=== PATIENT | female | born 2000 | race African-American/Black ===

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

== ENCOUNTER 2022-09-25 16:25 | Emergency (ER) | payer OTHER, SELFPAY ==
[2022-09-25] VITALS (8 sets, daily range): BP systolic 118–154; BP diastolic 65–90; PULSE 91–120; RESP 15–25; TEMP 36.3; O2SAT 98–100
--- NOTE | ~2022-09-25 | XR_ITS ---
XR chest 2V DATE: 09/25/2022 16:57 INDICATION: Chest pain, shortness of breath TECHNIQUE: PA and lateral views COMPARISON: January 04, 2008 pediatric 2 view chest FINDINGS: Normal heart size. No hilar or mediastinal enlargement. No pulmonary infiltrate or consolidation, pleural effusion or pulmonary vascular congestion or pneumo thorax. IMPRESSION: Negative Reviewed, dictated and finalized at location A. IMPRESSION: Negative
--- NOTE | 2022-09-25 16:30 | ECG_ITS ---
Measurements Intervals [place] Rate: 114 P: 50 MN: 169 QRS: 61 QRSD: 73 T: 29 QT: 315 QTc: 434 Interpretive Statements SINUS TACHYCARDIA POSSIBLE LEFT ATRIAL ENLARGEMENT ABNORMAL ECG COMPARED TO ECG 08/28/2021 13:15:57 SINUS TACHYCARDIA NOW PRESENT Electronically Signed On 09-25-2022 20:20:59 CDT by Vasyl Soriano D.O.
[2022-09-25 16:47] LABS: Basophils Percent Auto 0.9 % (0.2-1.2); Eosinophils Percent Auto 0.5 % (0-4.4); Hematocrit 38.4 % (37.0-47.0); Hemoglobin 12.8 g/dL (12.0-15.0); Immature Granulocyte Absolute 0.01 K/mm3 (0.00-0.031); Immature Granulocyte Percent A 0.2 % (0-0.5); Lymphocytes Absolute Auto 1.29 K/mm3 (0.9-3.2); Lymphocytes Percent Auto 30.2 % (18.3-44.2); Mean Corpuscular HGB Conc 33.3 g/dl (32-36); Mean Corpuscular Hemoglobin 31.1 pg (26-34); Mean Corpuscular Volume 93.2 fl (80-100); Mean Platelet Volume 8.4 fl (7.4-10.4); Monocytes Absolute Auto 0.3 K/mm3 (0.1-0.6); Monocytes Percent Auto 6.8 % (2.6-8.5); Neutrophils Absolute Auto 2.6 K/mm3 (1.3-6.7); Neutrophils Percent Auto 61.4 % (45.5-73.1); Platelet Count Result 395 k/mm3 (150-375); Red Blood Count 4.12 M/mm3 (4.2-5.4); Red Cell Distribution Width 12.8 % (11.5-14.5); White Blood Count 4.3 K/mm3 (4.5-10.0)
[2022-09-25 16:55] LABS: Alanine Aminotransferase 14 U/L (6-35); Albumin Level 4.6 g/dL (3.7-5.6); Alkaline Phosphatase 72 U/L (45-116); Anion Gap 10 mmol/L (8-16); Aspartate Amino Transferase 24 U/L (14-36); Bilirubin,Total 0.4 mg/dL (0.2-1.3); Blood Urea Nitrogen 7 mg/dL (8-21); Calcium 8.7 mg/dL (8.9-10.7); Carbon Dioxide 23 mmol/L (22-30); Chloride 104 mmol/L (98-107); Estimated CRCL calculation 131 ml/min; Estimated Glomerular Filt Rate > 60; Glucose 99 mg/dL (65-110); Lipase 31 U/L (23-300); Potassium 3.7 mmol/L (3.4-5.0); Sodium 137 mmol/L (134-143)
[2022-09-25 16:56] LABS: INR 1.1; Prothrombin Time 13.9 Seconds (11.1-14.7)
[2022-09-25 16:57] LABS: Partial Thromboplastin Time 29.9 SECONDS (22.3-36.8)
[2022-09-25 17:07] LABS: Troponin I < 0.012 ng/mL (0.000-0.034)
[2022-09-25] MEDS: BELLADONNA ALK/PHENOB ELIX 10 ML, MAG HYDROX/ALUMINUM HYD/SIMETH 30 ML, LIDOCAINE HCL 2... PO (19:23)
--- NOTE | 2022-09-25 19:34 | ED.CHESTPAIN ---
HPI - Chest Pain General Chief Complaint: Chest Pain Stated Complaint: chest pain Time Seen by Provider: 09/25/22 18:40 History of Present Illness HPI narrative: 21-year-old female with a history of asthma and GERD presents the emergency room for evaluation of chest pain that began 1 hour prior to arrival. Pain is a pressure and burning sensation that is midsternal radiates into the back. States standing up makes it worse. Patient states that she used her inhaler earlier today with no relief of symptoms. Denies any shortness of breath or difficulty breathing. Denies syncopal episode. Denies nausea or vomiting. Denies fevers. Patient is currently not on control, no history of DVTs /PEs, no recent fractures, no recent mobilization. No history of cancer. Related Data Allergies Allergy/AdvReac Type Severity Reaction Status Date / Time No Known Allergies Allergy Verified 09/25/22 16:39 Review of Systems Review of Systems: CONSTITUTIONAL: Denies fever, chills, or sweats. EYES: Denies visual changes, redness, or discharge. ENT: Denies rhinorrhea, congestion, sore throat, or otalgia. CARDIOVASCULAR: Reports chest pain RESPIRATORY: Denies cough or dyspnea. GASTROINTESTINAL: Denies abdominal pain, nausea, vomiting, or diarrhea. GENITOURINARY: Denies dysuria or hematuria. SKIN: Denies rash or itching. MUSCULOSKELETAL: Denies back pain, joint pain, or myalgia. NEUROLOGIC: Denies headache, numbness, dizziness, or weakness. PSYCHIATRIC: Denies anxiety or depression. Exam Narrative: GENERAL: Well-appearing, well-nourished, no physical limitations, and in no acute distress. HEAD: Normocephalic, atraumatic. EYES: Conjunctivae normal, PERRLA and EOMI. CHEST: Clear to auscultation. No respiratory distress. No wheezes rales or rhonchi. No tenderness. HEART: Regular rate and rhythm. No murmur heard. Normal peripheral pulses. ABDOMEN: Soft, nontender, nondistended, normal active bowel sounds. BACK: No CVA tenderness EXTREMITIES: Normal range of motion. No edema. No clubbing or cyanosis SKIN: Warm, dry, no rash. No noted wounds NEURO: No focal deficits. Alert and oriented x3. MAEW. CN's II-XI intact bilaterally, normal gait PSYCH: Cooperative. Normal mood and affect. Course Vital Signs Vital signs: Vital Signs Temperature 36.3 C L 09/25/22 16:40 Pulse Rate 120 H 09/25/22 16:40 Respiratory Rate 16 09/25/22 16:40 Blood Pressure 154/69 H 09/25/22 16:40 Pulse Oximetry 100 09/25/22 16:40 Temperature 36.3 C L 09/25/22 16:40 Pulse Rate 91 09/25/22 19:30 Respiratory Rate 15 09/25/22 19:30 Blood Pressure 126/73 09/25/22 19:30 Pulse Oximetry 99 09/25/22 19:30 Oxygen Delivery Room Air 09/25/22 18:39 MDM - Chest Pain Lab Data Result diagrams: 09/25/22 16:37 09/25/22 16:37 Labs: Lab Results 09/25/22 09/25/22 09/25/22 Range/Units 16:37 16:37 16:37 WBC 4.3 L (4.5-10.0) K/mm3 RBC 4.12 L (4.2-5.4) M/mm3 Hgb 12.8 (12.0-15.0) g/dL Hct 38.4 (37.0-47.0) % MCV 93.2 (80-100) fl MCH 31.1 (26-34) pg MCHC 33.3 (32-36) g/dl RDW 12.8 (11.5-14.5) % Plt Count 395 H (150-375) k/mm3 MPV 8.4 (7.4-10.4) fl Immature Gran % (Auto) 0.2 (0-0.5) % Neut % (Auto) 61.4 (45.5-73.1) % Lymph % (Auto) 30.2 (18.3-44.2) % [place] % (Auto) 6.8 (2.6-8.5) % Eos % (Auto) 0.5 (0-4.4) % Baso % (Auto) 0.9 (0.2-1.2) % Lymph # (Auto) 1.29 (0.9-3.2) K/mm3 [place] # (Auto) 0.3 (0.1-0.6) K/mm3 Eos # (Auto) 0.0 (0-0.3) K/mm3 Baso # (Auto) 0.0 (0.0-0.1) K/mm3 Abs Immat Gran (auto) 0.01 (0.00-0.031) K/mm3 Absolute Neuts (auto) 2.6 (1.3-6.7) K/mm3 Absolute Nucleated RBC 0.0 (0.0-0.012) K/mm3 Nucleated RBC % 0.0 (0.0-0.2) % PT 13.9 (11.1-14.7) Seconds INR 1.1 APTT 29.9 (22.3-36.8) SECONDS D-Dimer (<0.48) ug/mL Sodium 137 (134-143) mmol/L Potassium 3.7 (3.4-5.0)
[2022-09-25 20:23] LABS: Troponin I < 0.012 ng/mL (0.000-0.034)
[2022-09-25 20:35] LABS: D Dimer 0.29 ug/mL (<0.48)
== END 2022-09-25 21:00 | disposition home or self-care (01) ==
PROVIDERS: Emergency Medicine; Emergency Provider Nurse Practitioner Family
DX: R07.89 Other chest pain (principal); K21.9 Gastro-esophageal reflux disease without esophagitis; J45.909 Unspecified asthma, uncomplicated; R00.0 Tachycardia, unspecified; R94.31 Abnormal electrocardiogram [ECG] [EKG]
CPT/HCPCS: 36415; 71046; 80053; 83690; 84484; 85025; 85380; 85610; 85730; 93005; 99284; A9270